=== PATIENT | female | born 1985 | race Caucasian/White ===

== ENCOUNTER 2016-06-30 00:23 | Emergency (ER) | payer OTHER ==
[2016-06-30 02:50] LABS: RED BLOOD COUNT 5.16 M/UL (4.00-5.10)
[2016-06-30 03:06] LABS: BUN/CREATININE RATIO 16 (0-10)
== END 2016-06-30 05:04 | disposition home or self-care (01) ==
LOC: ER1 00:23
PROVIDERS: Family Medicine
DX: M54.6 Pain in thoracic spine (principal); M54.5 Low back pain; G89.29 Other chronic pain; R31.29 Other microscopic hematuria; F17.210 Nicotine dependence, cigarettes, uncomplicated; Z88.5 Allergy status to narcotic agent
CPT/HCPCS: 36415; 80053; 80307; 81001; 83690; 84484; 84703; 85025; 93005; 99284